=== PATIENT | male | born 1970 | race African-American/Black ===

== ENCOUNTER 2018-12-07 15:53 | Emergency (ER) | payer MEDICAID ==
[~2018-12-07] VITALS: Ht 188 cm; Wt 92.1 kg
[2018-12-07 16:35] LABS: CALCIUM 7.7 mg/dL (8.5-10.1); CARBON DIOXIDE 23.8 mmol/L (21-32); CHLORIDE SERUM 106 mmol/L (98-107); CREATININE SERUM 0.9 mg/dL (0.7-1.3); GFR1 > 60 mL/min; GLUCOSE SERUM 115 mg/dL (74-106); POTASSIUM SERUM 3.7 mmol/L (3.5-5.1); SODIUM SERUM 142 mmol/L (136-145)
[2018-12-07 16:43] LABS: PLATELET COUNT 308 x10^3mcL (130-400)
[2018-12-07 16:47] LABS: BASOPHIL % 2.6 % (0-2)
[2018-12-07 22:17] VITALS: BP 96/57
== END 2018-12-07 22:22 | disposition home or self-care (01) ==
LOC: ED 15:53
PROVIDERS: Emergency Medicine
DX: F10.129 Alcohol abuse with intoxication, unspecified (principal)
CPT/HCPCS: G0480; J1630; J7030